=== PATIENT | female | born 1955 | race American Indian/Alaskan Native ===

== ENCOUNTER 2017-09-25 12:56 | Day surgery (SDC) | payer BC ==
[~2017-09-25] VITALS: Ht 162.6 cm; Wt 99.5 kg
[~2017-09-25 12:56] MED LIST: ASPI81EC; B Complex #11 EACH PO; CARV6.25 PO; CLAR500; DIPH50 PO; LEVSOD100; LISI10; METO50ER; PRED20; RAMI5; RANI150 PO; SPIR25
[2017-09-25] MEDS ORDERED: Omeprazole20 M1 (13:49)
[2017-09-25] MEDS ORDERED: NEBI10 (13:49)
[2017-09-25] MEDS ORDERED: ASCO500 (13:50)
== END 2017-09-25 15:48 | disposition home or self-care (01) ==
LOC: ORSCSDS 12:56
PROVIDERS: Internal Medicine Gastroenterology
PROC: 0DBH8ZX Excision of Cecum, Via Natural or Artificial Opening Endoscopic, Diagnostic (ICD-10-PCS; principal; 2017-09-25 14:45)
PROC: 0DBL8ZX Excision of Transverse Colon, Via Natural or Artificial Opening Endoscopic, Diagnostic (ICD-10-PCS; principal; 2017-09-25 14:45)
DX: Z12.11 Encounter for screening for malignant neoplasm of colon (principal); D12.0 Benign neoplasm of cecum; D12.3 Benign neoplasm of transverse colon; K64.8 Other hemorrhoids; K57.30 Diverticulosis of large intestine without perforation or abscess without bleeding; I10 Essential (primary) hypertension; G47.33 Obstructive sleep apnea (adult) (pediatric); E03.9 Hypothyroidism, unspecified; J45.909 Unspecified asthma, uncomplicated; Z79.899 Other long term (current) drug therapy
CPT/HCPCS: 88305

== ENCOUNTER → 2017-12-11 | Outpatient (CLI) | payer BC ==
[~2017-12-11] MED LIST changes: +ASCO500; +NEBI10; +Omeprazole20 M1
[2017-12-13 12:59] LABS: HPV Genotype 16 Not Detected (NOTDET); HPV Genotype 18 Not Detected (NOTDET)
[2017-12-19 13:15] LABS: HPV High Risk Other Not Detected (NOTDET)
== END | disposition home or self-care (01) ==
LOC: OLS 15:46 → LAB SHORT 15:46
PROVIDERS: Obstetrics & Gynecology Gynecology
DX: Z12.4 Encounter for screening for malignant neoplasm of cervix (principal)
CPT/HCPCS: 87624; G0123

== ENCOUNTER → 2017-12-26 | Outpatient (CLI) | payer BC | END | disposition home or self-care (01) | LOC: LAB SHORT 11:17 → PLD 11:17 | DX: D22.71 Melanocytic nevi of right lower limb, including hip (principal) | CPT/HCPCS: 88305 ==

== ENCOUNTER → 2018-12-25 | Outpatient (CLI) | payer BC | END | disposition home or self-care (01) | LOC: PLD 12:53 → LAB SHORT 12:53 | DX: L85.8 Other specified epidermal thickening (principal); N90.9 Noninflammatory disorder of vulva and perineum, unspecified | CPT/HCPCS: 88305 ==

== ENCOUNTER → 2018-12-25 | Outpatient (CLI) | payer BC ==
[2018-12-26 15:07] LABS: HPV 16 Negative (Negative); HPV 18 Negative (Negative); HPV OTHER HR TYPES Negative (Negative)
== END | disposition home or self-care (01) ==
LOC: LAB 12:34 → LAB SHORT 12:34
PROVIDERS: Obstetrics & Gynecology Gynecology
DX: Z12.4 Encounter for screening for malignant neoplasm of cervix (principal); N90.9 Noninflammatory disorder of vulva and perineum, unspecified
CPT/HCPCS: 87070; 87205; 87624; G0123

== ENCOUNTER → 2020-06-21 | Outpatient (CLI) | payer BC | END | disposition home or self-care (01) | LOC: LAB SHORT 10:55 → PLD 10:55 | DX: L82.1 Other seborrheic keratosis (principal); L57.0 Actinic keratosis; L57.8 Other skin changes due to chronic exposure to nonionizing radiation; L73.8 Other specified follicular disorders; D48.5 Neoplasm of uncertain behavior of skin | CPT/HCPCS: 88305 ==

== ENCOUNTER → 2020-12-20 | Outpatient (CLI) | payer BC ==
[~2020-12-20] MED LIST changes: +C COMPLEX1000 M2 PO; +COREG12.5 M1 PO; +LEVSOD100 PO; +SPIR25 PO; +THERA-D2000 UNIT PO; +Vitamin B Comple1 EA PO
== END ==
LOC: PLD 11:29 → LAB SHORT 11:29
DX: D48.5 Neoplasm of uncertain behavior of skin (principal)
CPT/HCPCS: 88305

== ENCOUNTER 2021-04-12 08:40 | Day surgery (SDC) | payer BC ==
[~2021-04-12] VITALS: Ht 162.6 cm; Wt 88.6 kg
--- NOTE | 2021-04-12 11:17 | NUR ---
04/12/21 1117 Philly Mari WHEN ASKED PT. IF SHE HAD ANY PAIN, PT. STATED "GAS PAINS." PT. ALSO MENTIONED SHE COULD FEEL THE GAS UP BY HER LEFT UPPER SHOULDER & LEFT ABD.
== END 2021-04-12 10:58 | disposition home or self-care (01) ==
LOC: ORSCSDS 08:40
PROVIDERS: Internal Medicine Gastroenterology
PROC: 0DBM8ZX Excision of Descending Colon, Via Natural or Artificial Opening Endoscopic, Diagnostic (ICD-10-PCS; principal; 2021-04-12 10:00)
PROC: 0DBH8ZX Excision of Cecum, Via Natural or Artificial Opening Endoscopic, Diagnostic (ICD-10-PCS; principal; 2021-04-12 10:00)
DX: Z12.11 Encounter for screening for malignant neoplasm of colon (principal); D12.4 Benign neoplasm of descending colon; K57.30 Diverticulosis of large intestine without perforation or abscess without bleeding; Z86.010 Personal history of colon polyps; I10 Essential (primary) hypertension; E03.9 Hypothyroidism, unspecified; G47.33 Obstructive sleep apnea (adult) (pediatric); J45.909 Unspecified asthma, uncomplicated; Z79.899 Other long term (current) drug therapy
CPT/HCPCS: 88305; J2704; J7120

== ENCOUNTER 2021-12-21 06:07 | Day surgery (SDC) | payer MEDICARE, BC ==
[~2021-12-21] VITALS: Ht 160 cm; Wt 98.0 kg
[~2021-12-21 06:07] MED LIST changes: +ASPI81CH PO; +Loratadine10 MG PO; +MAGNESIUM CITR100 MG PO; +NASACORT10.8 ML; +OMEP20ER PO; +[UNRECOGNIZED DRUG - OTHER] PO
--- NOTE | 2021-12-21 08:30 | NUR ---
12/21/21 0830 Paty Castillo PRIOR TO ARRIVING IN THE OR PATIENT RECEIVED VANCO 1GM IN PREOP.
--- NOTE | 2021-12-21 19:35 | NUR ---
SHIFT SUMMARY PT IS DOING WELL POST OP. WAS ABLE TO WORK w/ THERAPY AFTER SPINAL WORE OFF. SAT UP IN CHAIR UNTIL AFTER DINNER. EATING, DRINKING, VOIDING WELL. NO DRNG TO QUINCY WRAP DURING MY SHIFT. PAIN WELL MANAGED.
[2021-12-22 04:52] LABS: BASOPHILS ABSOLUTE AUTO 0.01 K/mm3 (0.00-0.23); BASOPHILS PERCENT AUTO 0 % (0-2); EOSINOPHILS PERCENT AUTO 0 % (0-6); Hemoglobin 11.7 g/dL (11.5-16.0); IMMATURE GRAN ABSOLUTE AUTO 0.03 K/mm3 (0.00-0.10); IMMATURE GRAN PERCENT AUTO 0 % (0-1); LYMPHOCYTES ABSOLUTE AUTO 1.28 K/mm3 (0.84-5.20); LYMPHOCYTES PERCENT AUTO 11 % (21-46); MONOCYTES ABSOLUTE AUTO 0.84 K/mm3 (0.16-1.47); MONOCYTES PERCENT AUTO 7 % (4-13); Mean Corpuscular HGB 32.1 pg (26.0-34.0); Mean Corpuscular HGB Conc 34.4 g/dL (31.5-36.5); Mean Corpuscular Volume 93 fL (80-100); Mean Platelet Volume 9.1 fL (9.1-12.4); NEUTROPHILS ABSOLUTE AUTO 9.69 K/mm3 (1.96-9.15); NEUTROPHILS PERCENT AUTO 82 % (41-73); Platelet Count 199 K/mm3 (150-400); RDW Coefficient Variation 12.2 % (11.7-14.2); RDW Standard Deviation 42.2 fL (35.1-46.3); Red Blood Cell Count 3.64 M/mm3 (3.80-5.20); White Blood Cell Count 11.85 K/mm3 (4.00-11.30)
--- NOTE | 2021-12-22 04:56 | NUR ---
[employer]OCIATE SUMMARY PT AAOX4 AND PLEASANT. STANDBY ASSIST W/ FWW IN ROOM. PT'S L KNEE PAIN HAS BEEN WELL CONTROLLED WITH SCHEDULED TORADOL AND TYLENOL ALTHOUGH PT IS GOING TO REQUEST ADDITIONAL PAIN MEDS WITH MORNING TORADOL DOSE TO ASSIST WITH AMBULATION DURING THE MORNING. L KNEE INCISION C/D/I WITH NO DRAINAGE NOTED. GAUZE AND QUINCY WRAP IN PLACE WITH POLAR PACK OVER TOP. VSS, WILL CONTINUE TO MONITOR.
[2021-12-22 05:24] LABS: Anion Gap 9 mmol/L (6-16); Blood Urea Nitrogen 17 mg/dL (8-24); Bun/Creatinine Ratio 23.9 (12.0-20.0); CO2, Blood 26 mmol/L (21-32); Calcium, Blood 8.9 mg/dL (8.5-10.1); Chloride, Blood 104 mmol/L (98-108); Creatinine, Blood 0.71 mg/dL (0.40-1.00); Glomerular Filtration Rate >60 (60-); Glucose, Blood 129 mg/dL (70-99); Potassium, Blood 3.9 mmol/L (3.5-5.5); Sodium, Blood 139 mmol/L (136-145)
--- NOTE | 2021-12-22 08:20 | NUR ---
L KNEE DRESSING CHANGED BY DR. WILLSON THIS AM, OOB TO CHAIR WITH STANDBY ASSIST, GAIT BELT AND WALKER, TOLERATED WELL, CONT. TO MONITOR FOR ANY CHANGES.
[2021-12-22] MEDS ORDERED: LINE600 PO (09:25)
[2021-12-22] MEDS ORDERED: PROM25 PO (09:26)
[2021-12-22] MEDS ORDERED: OXAYDO5 M1 PO (09:26)
--- NOTE | 2021-12-22 10:09 | NUR ---
DC'D HOME, DC INSTRUCTIONS GIVEN, VERBALIZED UNDERSTANDING, PT DC'D WITH BELONGINGS, ACCOMPANIED BY .
== END 2021-12-22 10:08 | disposition home or self-care (01) ==
LOC: ORSCMMR 06:07 → ORD 07:30 → ORSCMMR 07:30 → SURS 11:37 → ORSCMMR 12-22 10:08
PROVIDERS: Orthopaedic Surgery
PROC: 0SRD0J9 Replacement of Left Knee Joint with Synthetic Substitute, Cemented, Open Approach (ICD-10-PCS; principal; 2021-12-21 07:30)
PROC: 8E0YXBZ Computer Assisted Procedure of Lower Extremity (ICD-10-PCS; principal; 2021-12-21 07:30)
DX: M17.0 Bilateral primary osteoarthritis of knee (principal); I48.91 Unspecified atrial fibrillation; E03.9 Hypothyroidism, unspecified; G47.33 Obstructive sleep apnea (adult) (pediatric); E66.9 Obesity, unspecified; Z68.37 Body mass index [BMI] 37.0-37.9, adult; I10 Essential (primary) hypertension; K21.9 Gastro-esophageal reflux disease without esophagitis; Z79.899 Other long term (current) drug therapy; Z79.82 Long term (current) use of aspirin
CPT/HCPCS: 36415; 73560-LT; 80048; 83735; 85025; 97110; 97116; 97162; A9270; C1713; C1776; J0690; J0735; J1885; J2250; J2370; J2704; J2795; J3010; J3370; J7050; J7120

== ENCOUNTER 2022-08-23 06:00 | Day surgery (SDC) | payer BC ==
[~2022-08-23] VITALS: Ht 160 cm; Wt 103.7 kg
[~2022-08-23 06:00] MED LIST changes: +LINE600 PO; +OXAYDO5 M1 PO; +PROM25 PO
--- NOTE | 2022-08-23 07:43 | NUR ---
Ambulatory in Day Surgery. History, Chart, Medications and Allergies reviewed before start of procedure. Lungs clear T/O to Auscultation. Patient confirms NPO status and agrees with scheduled surgery. Pre-Op teaching done. Pt verbalizes understanding. PT'S CPAP TAKEN TO PACU. HER EARINGS WERE TAKEN OUT AND PLACED IN BAG AND GIVEN TO HER .
--- NOTE | 2022-08-23 18:50 | NUR ---
SHIFT SUMMARY PT S/P FOR R TOTAL KNEE. PT HAS BEEN UP, VOIDED, AND IS TOLERATING PO INTAKE WELL. PT WORKED WITH PHSYICAL THERAPY WELL AND WILL POSSIBLY DC HOME TOMORROW. VSS.
[2022-08-23] MEDS ORDERED: LINE600 PO (23:46)
[2022-08-23] MEDS ORDERED: PROM12.5S PR (23:47)
[2022-08-23] MEDS ORDERED: OXYC5 PO (23:47)
--- NOTE | 2022-08-24 04:06 | NUR ---
SHIFT SUMMARY: POD 1 RIGHT TOTAL KNEE PATIENT IS A&OX4. VS ARE WNL AND IS ON RA EXCEPT FOR WHEN SHE IS ASLEEP SHE WEARS HER HOME CPAP. PAIN IS MANAGED WITH 1 NORCO AND TYLENOL. RIGHT KNEE HAS GAUZE AND QUINCY WRAP THAT ARE C/D/I. POLAR PACK IS IN PLACE. DENIES NUMBNESS OR TINGLING. SHE IS A SBA WITH FWW AND GAIT BELT FOR AMBULATION. SHE IS TOLERATING PO INTAKE AND IS VOIDING/PASSING GAS. CALLS APPROPRIATELY. CALL LIGHT WITHIN REACH. THE PLAN IS TO WORK WITH PT LATER THIS MORNING AND POSSIBLY DISCHARGE HOME IF APPROPRIATE.
[2022-08-24 05:18] LABS: BASOPHILS ABSOLUTE AUTO 0.02 K/mm3 (0.00-0.23); BASOPHILS PERCENT AUTO 0 % (0-2); EOSINOPHILS ABSOLUTE AUTO 0.22 K/mm3 (0.00-0.68); EOSINOPHILS PERCENT AUTO 3 % (0-6); Hematocrit 33.7 % (33.0-51.0); Hemoglobin 11.6 g/dL (11.5-16.0); IMMATURE GRAN ABSOLUTE AUTO 0.01 K/mm3 (0.00-0.10); IMMATURE GRAN PERCENT AUTO 0 % (0-1); LYMPHOCYTES ABSOLUTE AUTO 1.77 K/mm3 (0.84-5.20); LYMPHOCYTES PERCENT AUTO 27 % (21-46); MONOCYTES ABSOLUTE AUTO 0.63 K/mm3 (0.16-1.47); MONOCYTES PERCENT AUTO 10 % (4-13); Mean Corpuscular HGB 32.2 pg (26.0-34.0); Mean Corpuscular HGB Conc 34.4 g/dL (31.5-36.5); Mean Corpuscular Volume 94 fL (80-100); NEUTROPHILS ABSOLUTE AUTO 3.89 K/mm3 (1.96-9.15); NEUTROPHILS PERCENT AUTO 59 % (41-73); Platelet Count 185 K/mm3 (150-400); RDW Coefficient Variation 12.4 % (11.7-14.2); RDW Standard Deviation 42.8 fL (35.1-46.3); White Blood Cell Count 6.54 K/mm3 (4.00-11.30)
[2022-08-24 05:33] LABS: Magnesium, Blood 1.8 mg/dL (1.6-2.4)
[2022-08-24 05:34] LABS: Bun/Creatinine Ratio 23.2 (12.0-20.0); Calcium, Blood 8.4 mg/dL (8.5-10.1); Creatinine, Blood 0.73 mg/dL (0.40-1.00); Potassium, Blood 4.1 mmol/L (3.5-5.5)
--- NOTE | 2022-08-24 10:23 | NUR ---
DISCHARGE SUMMARY PT POD #1 FOR R TKA. DRESSING CHANGED FROM GAUZE TO AQUACEL TO SURGEON AND CURRENT AQUACEL DRESSING CDI. PT WORKED WELL WITH PHYSICAL THERAPY. DISCHARGED HOME WITH .
== END 2022-08-24 10:45 | disposition home or self-care (01) ==
LOC: ORSCMMR 06:00 → ORD 07:30 → SURS 10:56 → ORSCMMR 08-24 10:45
PROVIDERS: Orthopaedic Surgery
PROC: 0SRC0J9 Replacement of Right Knee Joint with Synthetic Substitute, Cemented, Open Approach (ICD-10-PCS; principal; 2022-08-23 07:30)
DX: M17.11 Unilateral primary osteoarthritis, right knee (principal); I48.91 Unspecified atrial fibrillation; I10 Essential (primary) hypertension; G47.33 Obstructive sleep apnea (adult) (pediatric); E03.9 Hypothyroidism, unspecified; Z79.899 Other long term (current) drug therapy; E66.01 Morbid (severe) obesity due to excess calories; Z68.41 Body mass index [BMI] 40.0-44.9, adult; Z79.82 Long term (current) use of aspirin
CPT/HCPCS: 36415; 73560-RT; 80048; 83735; 85025; 94660; 94762; 97110; 97116; 97162; A9270; C1713; C1776; J0690; J0735; J1885; J2250; J2370; J2405; J2704; J2795; J3010; J3370; J7120

== ENCOUNTER 2022-12-25 22:53 | Emergency (ER) | payer BC ==
[~2022-12-25] VITALS: Ht 160 cm; Wt 99.8 kg
[~2022-12-25 22:53] MED LIST changes: +OXYC5 PO; +PROM12.5S PR
[2022-12-25 23:25] LABS: BASOPHILS ABSOLUTE AUTO 0.06 K/mm3 (0.00-0.23); BASOPHILS PERCENT AUTO 1 % (0-2); EOSINOPHILS ABSOLUTE AUTO 0.31 K/mm3 (0.00-0.68); EOSINOPHILS PERCENT AUTO 4 % (0-6); Hematocrit 41.7 % (33.0-51.0); Hemoglobin 14.5 g/dL (11.5-16.0); IMMATURE GRAN ABSOLUTE AUTO 0.01 K/mm3 (0.00-0.10); IMMATURE GRAN PERCENT AUTO 0 % (0-1); LYMPHOCYTES ABSOLUTE AUTO 3.54 K/mm3 (0.84-5.20); LYMPHOCYTES PERCENT AUTO 44 % (21-46); MONOCYTES ABSOLUTE AUTO 0.54 K/mm3 (0.16-1.47); MONOCYTES PERCENT AUTO 7 % (4-13); Mean Corpuscular HGB 32.2 pg (26.0-34.0); Mean Corpuscular HGB Conc 34.8 g/dL (31.5-36.5); Mean Corpuscular Volume 93 fL (80-100); Mean Platelet Volume 8.8 fL (9.1-12.4); NEUTROPHILS ABSOLUTE AUTO 3.62 K/mm3 (1.96-9.15); NEUTROPHILS PERCENT AUTO 45 % (41-73); Platelet Count 250 K/mm3 (150-400); RDW Coefficient Variation 12.4 % (11.7-14.2); RDW Standard Deviation 42.5 fL (35.1-46.3); Red Blood Cell Count 4.51 M/mm3 (3.80-5.20); White Blood Cell Count 8.08 K/mm3 (4.00-11.30)
[2022-12-25 23:40] LABS: Free Thyroxine 0.99 ng/dL (0.70-1.60); Magnesium, Blood 2.1 mg/dL (1.6-2.4)
[2022-12-25 23:43] LABS: Albumin, Blood 3.7 g/dL (3.4-5.0); Bilirubin, Total 0.2 mg/dL (0.1-1.0); Bun/Creatinine Ratio 19.2 (12.0-20.0); Creatinine, Blood 0.84 mg/dL (0.40-1.00); Globulin, Blood 3.8 g/dL (2.2-4.0); Potassium, Blood 4.1 mmol/L (3.5-5.5); Thyroid Stimulating Hormone 5.81 uIU/mL (0.360-4.800); Total Protein, Blood 7.5 g/dL (6.4-8.2)
== END 2022-12-26 02:47 | disposition home or self-care (01) ==
LOC: ER 22:53
PROVIDERS: Student in an Organized Health Care Education/Training Program
DX: I48.91 Unspecified atrial fibrillation (principal); I10 Essential (primary) hypertension; E03.9 Hypothyroidism, unspecified; K21.9 Gastro-esophageal reflux disease without esophagitis; Z88.2 Allergy status to sulfonamides; Z88.8 Allergy status to other drugs, medicaments and biological substances; Z79.899 Other long term (current) drug therapy; Z79.82 Long term (current) use of aspirin
CPT/HCPCS: 36415; 71045; 80053; 83735; 83880; 84439; 84443; 84484; 85025; 93005; 93010; 96360; 99285-25; J7030

== ENCOUNTER → 2023-06-19 | Outpatient (CLI) | payer BC | LOC: LAB SHORT 14:30 → PLD 14:30 | DX: D48.5 Neoplasm of uncertain behavior of skin (principal) | CPT/HCPCS: 88305 ==

== ENCOUNTER 2025-08-28 12:38 | Day surgery (SDC) | payer MEDICARE ==
[~2025-08-28] VITALS: Ht 160 cm; Wt 106.8 kg
--- NOTE | 2025-08-28 08:30 | NUR ---
08/28/25 [address] EID, SEE ANESTHESIA RECORDS.
[~2025-08-28 12:38] MED LIST changes: -COREG12.5 M1 PO; +Carvedilol12.5 MG PO; +DULO60 PO; +ELIQUIS5 M2 PO; -SPIR25 PO; +SPIR50 PO; +ZEPBOUND5 MG/0.5 M SC
[2025-08-28 14:09] VITALS: BP 133/74
--- NOTE | 2025-08-28 14:16 | NUR ---
PRE PROCEDURE NOTE PT A&OX4, BREATHING RA, NO COMPLAINTS. Ambulatory in Day Surgery Patient confirms NPO status and agrees with scheduled surgery. Pre-Op teaching done. Pt verbalizes understanding. Patient States Post-Procedure ride home has been arranged.
--- NOTE | 2025-08-28 16:11 | NUR ---
Discharge instructions reviewed with patient. Patient verbalizes understanding. Copy given to patient to take home. Discharged via wheelchair to private car for ride home.
[2025-08-28] MEDS ORDERED: Phenylephrine HCl 100 MCG/ML-NS 10MLSYR (1MG/10ML) IV ONE (17:41)
== END 2025-08-28 15:40 | disposition home or self-care (01) ==
LOC: ORSCMMR 12:38 → ORD 14:00 → ORSCMMR 15:40 → ORD 12-04 09:00
PROVIDERS: Internal Medicine Gastroenterology
PROC: 0DBN8ZX Excision of Sigmoid Colon, Via Natural or Artificial Opening Endoscopic, Diagnostic (ICD-10-PCS; principal; 2025-08-28 14:00)
PROC: 0DB68ZX Excision of Stomach, Via Natural or Artificial Opening Endoscopic, Diagnostic (ICD-10-PCS; principal; 2025-08-28 14:00)
DX: R13.10 Dysphagia, unspecified (principal); K26.9 Duodenal ulcer, unspecified as acute or chronic, without hemorrhage or perforation; K22.89 Other specified disease of esophagus; Z12.11 Encounter for screening for malignant neoplasm of colon; K63.5 Polyp of colon; K57.30 Diverticulosis of large intestine without perforation or abscess without bleeding; K64.4 Residual hemorrhoidal skin tags; Z86.0101 Personal history of adenomatous and serrated colon polyps; I45.4 Nonspecific intraventricular block; I10 Essential (primary) hypertension; I50.9 Heart failure, unspecified; J45.909 Unspecified asthma, uncomplicated; E03.9 Hypothyroidism, unspecified; G47.33 Obstructive sleep apnea (adult) (pediatric); Z79.899 Other long term (current) drug therapy
CPT/HCPCS: 88305; 88342; J2371; J2704; J7120